=== PATIENT | female | born 1995 | race Caucasian/White ===

== ENCOUNTER 2019-06-25 09:04 | Emergency (ER) | payer OTHER ==
[~2019-06-25] VITALS: Ht 157.5 cm; Wt 59.9 kg
[2019-06-25 09:13] VITALS: Ht 157.5 cm; Wt 59.9 kg
[2019-06-25 10:27] VITALS: BP 130/81
== END 2019-06-25 10:27 | disposition home or self-care (01) ==
LOC: ED 09:04
DX: S20.211A Contusion of right front wall of thorax, initial encounter (principal); V49.49XA Driver injured in collision with other motor vehicles in traffic accident, initial encounter; Y93.I9 Activity, other involving external motion; Y92.413 State road as the place of occurrence of the external cause; Y99.8 Other external cause status